=== PATIENT | male | born 1945 | race Caucasian/White ===

== ENCOUNTER 2019-03-02 13:44 | Emergency (ER) | payer SELFPAY ==
[2019-03-02] MEDS ORDERED: DIPH,PERTUSS(ACELL),TET VAC/PF 0.5 ML DISP.SYRIN IM ONE (13:59)
--- NOTE | 2019-03-02 13:59 | ED Physician Documentation ---
Plantar Puncture Wound - HISTORIAN Historian: patient - HPI Stated Complaint: step on nail, left foot Chief Complaint: Plantar Puncture Wound Additional Information: Patient presents to ED after stepping on a nail with his left foot. He is not current on tetanus. Onset: minutes (45) Where: home Context: dirty nail Location: left foot Shoes:: rubber-soled shoes - ROS NEURO: denies: headache CONST: no problems CVS/RESP: none MS/SKIN/LYMPH: none GI/: denies: nausea - PAST HX Past History: none Allergies/Adverse Reactions: Allergies Allergy/AdvReac Type Severity Reaction Status Date / Time No Known Allergies Allergy Verified 03/02/19 13:58 Home Medications: Ambulatory Orders Medication Instructions Recorded Amoxicillin/Potassium Clav 1 each PO BID #10 tablet 03/02/19 [Augmentin 875-125 Tablet] - SOCIAL HX Smoking History: non-smoker Alcohol Use: none Drug Use: none - FAMILY HX Family History: none - REVIEWED ASSESSMENTS Nursing Assessment Reviewed: Yes Vitals Reviewed: Yes ED Results Lab/Radiology - Orders Orders: ED Orders Category Date Time Status Diph,Pertuss(Acell),Tet Vac/Pf [Adacel] Med 03/02/19 13:59 Once 0.5 ml IM .ONCE ONE Plantar Puncture Wound Physica - Physical Exam General Appearance: no distress Extremities: nml inspection Neuro/Vascular/Tendon: no vascular compromise, motor nml Skin: intact Gait: normal Discharge Clincal Impression: Puncture wound of plantar aspect of left foot Qualifiers: Encounter type: initial encounter Qualified Code(s): S91.332A - Puncture wound without foreign body, left foot, initial encounter Prescriptions: Amoxicillin/Potassium Clav [Augmentin 875-125 Tablet] 1 each PO BID #10 tablet Referrals: Primary Doctor,No [Primary Care Provider] - 2 Days Additional Instructions: 1. Wash wound twice daily with antibacterial soap then apply triple antibiotic ointment 2. Take antibiotics until gone. 3. Tylenol as needed for pain 4. Follow up with PCP within 1 week 5. Return to ER for new or worsening symptoms Condition: Stable Disposition: 01 HOME, SELF-CARE Decision to Admit: NO Date of Decison to Admit: 03/02/19 Decision Time: 14:03
[2019-03-02 14:12] VITALS: BP 169/97
== END 2019-03-02 14:12 | disposition home or self-care (01) ==
LOC: ED 13:44
DX: S91.332A Puncture wound without foreign body, left foot, initial encounter (principal); W45.0XXA Nail entering through skin, initial encounter; Y92.009 Unspecified place in unspecified non-institutional (private) residence as the place of occurrence of the external cause
CPT/HCPCS: 90471; 90715; 99283; 99284